=== PATIENT | male | born 1975 | race Caucasian/White ===

== ENCOUNTER 2020-06-12 15:57 | Emergency (ER) | payer SELFPAY ==
[~2020-06-12] VITALS: Ht 167.6 cm; Wt 75.0 kg
[2020-06-12 16:08] VITALS: Ht 167.6 cm; Wt 75.0 kg
[2020-06-12 16:42] LABS: CALC OSMOLALITY 284 mosm/kg (275-300); CALCIUM 9.1 mg/dL (8.5-10.1); CARBON DIOXIDE 27.5 mmol/L (21.0-32.0); CHLORIDE - SERUM 105 mmol/L (98-107); CREATININE - SERUM 1.3 mg/dL (0.6-1.3); GLUCOSE 95 mg/dL (74-106); POTASSIUM - SERUM 3.9 mmol/L (3.5-5.1); SODIUM 142 mmol/L (136-145); UREA NITROGEN 18 mg/dL (7-18); eGFR NON AFRICAN AMERICAN 63 mL/min (90-120)
[2020-06-12 16:44] LABS: BASOPHILS 0.2 % (0-2); EOSINOPHILS 1.1 % (0-7); HEMOGLOBIN 15.2 g/dL (13.5-17.5); IMMATURE GRANULOCYTES 0.2 % (0-5); MCH 29.8 pg (26.0-34.0); MCHC 34.5 g/dL (31.0-37.0); MCV 86.3 fL (80.0-100.0); MONOCYTES 9.7 % (2-11); NEUTROPHILS 68.8 % (40-80); PLATELET COUNT 178 10x3/uL (130-400); RDW 12.5 % (11.5-14.5); WBC 6.2 10x3/uL (4.8-10.8)
[2020-06-12 16:51] LABS: ALBUMIN 4.6 g/dL (3.4-5.0); ALKALINE PHOSPHATASE 92 U/L (30-120); ALT (SGPT) 28 U/L (10-68); AMYLASE - SERUM 53 U/L (25-115); BILIRUBIN - TOTAL 0.75 mg/dL (0.2-1.3); LIPASE 93 U/L (73-393); PROTEIN - SERUM 7.7 g/dL (6.4-8.2); TROPONIN-I < 0.017 ng/mL (0.000-0.060)
[2020-06-12 16:52] LABS: BILIRUBIN NEGATIVE (NEGATIVE); KETONE NEGATIVE (NEGATIVE); NITRITE NEGATIVE (NEGATIVE); UROBILINOGEN NORMAL (NORMAL)
[2020-06-12] MEDS ORDERED: PROTONIX40 MG PO (17:50)
[2020-06-12] MEDS ORDERED: CARAFATE1 G PO (17:50)
[2020-06-12 18:17] VITALS: BP 154/91
== END 2020-06-12 18:20 | disposition home or self-care (01) ==
LOC: D.ER 15:57
DX: R10.13 Epigastric pain (principal); K29.70 Gastritis, unspecified, without bleeding